=== PATIENT | female | born 1980 | race Caucasian/White ===

== ENCOUNTER 2019-06-08 09:28 | Emergency (ER) | payer OTHER, SELFPAY ==
[2019-06-08 09:34] VITALS: BP 142/82; PULSE 85; RESP 16; TEMP 36.3; O2SAT 100
--- NOTE | 2019-06-08 10:00 | ED.URI ---
HPI - URI/Sore Throat General Chief Complaint: Upper Respiratory Infection Stated Complaint: COUGH Time Seen by Provider: 06/08/19 10:01 Source: patient and RN notes reviewed Mode of arrival: ambulatory Limitations: no limitations History of Present Illness HPI Narrative: 38-year-old female presents with 4-day history of cough, chest congestion. Feels like she has things cough that she is unable to. Reports rhinorrhea, nasal congestion. Reports she has been taking Nasonex with no relief. MD elicited complaint: cough Related Data Home Medications Medication Instructions Recorded Confirmed bupropion HCl 300 mg 24 hr tablet, 300 mg PO DAILY tablet 04/07/19 04/19/19 extended release dextroamphetamine-amphetamine 20 20 mg PO DAILY 04/07/19 04/19/19 mg tablet alprazolam 0.25 mg PO DAILY PRN 04/19/19 04/19/19 biotin 10,000 mcg PO DAILY 04/19/19 04/19/19 esomeprazole magnesium [Nexium] 20 mg PO BID 04/19/19 04/19/19 fluoxetine 40 mg capsule 20 mg PO DAILY cap 05/31/19 levonorgestrel 20 mcg/24 hours (5 1 device I-UTERINE ONCE 05/31/19 yrs) 52 mg intrauterine device topiramate 100 mg tablet 50 mg PO DAILY tablet 05/31/19 Allergies Allergy/AdvReac Type Severity Reaction Status Date / Time No Known Allergies Allergy Unverified 04/19/19 08:49 Review of Systems Review of Systems: Narrative: CONSTITUTIONAL: Reports malaise. Denies chills, sweats, or fever. EYES: Denies visual changes, redness, or discharge. ENT: Reports rhinorrhea, congestion. Denies sinus pain, otalgia and sore throat. CARDIOVASCULAR: Denies chest pain, palpitations, or edema. RESPIRATORY: Reports cough, chest congestion. Denies dyspnea. GASTROINTESTINAL: Denies abdominal pain, nausea, vomiting, diarrhea SKIN: Denies rash or itching. MUSCULOSKELETAL: Denies myalgia. NEUROLOGIC: Reports headache. All systems reviewed & are unremarkable except as noted in HPI and below PMFSH Past Medical History Medical History (Updated 06/08/19 @ 10:08 by Joana Williamson NP) Birthmark of skin removed Chicken pox Craniofacial hyperhidrosis Depression with anxiety Eating disorder Epigastric pain Hip pain Sinus infection Surgical History Surgical History H/O section 2006, 2009 H/O sinus surgery 07/10/2017 Family History Family History (Updated 05/31/19 @ 10:22 by Tahmina Bledsoe [facility]) Sibling Family history of migraine headaches Anxiety Father Family history of migraine headaches Brain tumor Mother Depression Diabetes mellitus Anxiety depression Social History Social History (Updated 05/31/19 @ 10:22 by Tahmina Bledsoe [facility]) Smoking packs per day: 0.5 Smoking cigarettes per day: 10.0 Smoking status: Current every day smoker Tobacco type: cigarettes Alcohol intake: current Comments At time of signature, agree with nursing past medical, surgical, social and family history. There is no relevant family history pertinent to the presenting complaint Exam Narrative: Exam Narrative: GENERAL: Well-appearing, well-nourished, and in no acute distress. HEAD: Normocephalic EYES: PERRLA, conjunctivae clear ENT: Nares clear, turbinates edematous and erythematous, clear discharge. Mucous membranes moist. TM pearly soto with sharp light reflex bilaterally; no tragal tenderness. Oropharynx not erythematous without lesions. Tonsils not enlarged and without exudate, no drooling, no hoarseness, no trismus. NECK: Supple. No lymphadenopathy CHEST: Clear to auscultation, breath sounds equal. No wheezing, rhonchi, rales, or stridor. No respiratory distress, speaks in full sentences. Cough noted HEART: Regular rate and rhythm. No murmur heard. Normal peripheral pulses. SKIN: Warm, dry, no rash. NEURO: Alert and oriented x3. PSYCH: Normal mood and affect Course Course Emergency Course: Patient is aware of diagnosis, understands and agrees to treatment plan. A
== END 2019-06-08 10:13 | disposition home or self-care (01) ==
PROVIDERS: Emergency Provider Nurse Practitioner; PCP Internal Medicine
DX: J40 Bronchitis, not specified as acute or chronic (principal); F17.210 Nicotine dependence, cigarettes, uncomplicated; F41.9 Anxiety disorder, unspecified; F32.9 Major depressive disorder, single episode, unspecified
CPT/HCPCS: 99213; G0463

== ENCOUNTER 2020-07-18 11:52 | Outpatient (CLI) | payer OTHER, SELFPAY ==
--- NOTE | ~2020-07-18 | XR_ITS ---
EXAMINATION: XR ribs BI 3V w CXR 2V DATE: 07/18/2020 12:16 INDICATION: Pleurodynia. TECHNIQUE: Frontal and lateral views of the chest and 3 views of the right ribs and 3 views of the le ft ribs were obtained. COMPARISON: Chest 2 views 10/24/2009 FINDINGS: CHEST TWO VIEWS: The chest demonstrates clear lungs without pneumonia, pleural effusion, or pneumotho rax. The heart size is normal. BILATERAL RIBS: There is no rib fracture. IMPRESSION: 1. No rib fracture. Reviewed, dictated and finalized at location A. IMPRESSION: 1. No rib fracture.
== END 2020-07-18 11:53 | disposition home or self-care (01) ==
LOC: ANHIMG 11:57
PROVIDERS: PCP Internal Medicine; Visit Provider Nurse Practitioner
DX: R07.81 Pleurodynia (principal)
CPT/HCPCS: 71046; 71110

== ENCOUNTER 2020-07-23 08:55 | Outpatient (CLI) | payer OTHER, SELFPAY ==
--- NOTE | ~2020-07-23 | CT_ITS ---
EXAMINATION: CT diagnostic chest w con EXAM DATE: 07/23/2020 09:19 INDICATION: R07.81 - Pleurodynia . TECHNIQUE: Spiral CT of the chest following intravenous injection of 75 mL Omnipaque 350. Axial, cor onal and sagittal images were reviewed. Coronal maximum intensity pixel images of chest reviewed. T he dose-length product (DLP) for this examination was 371.51 mGy-cm. The exposure was tailored accor ding to patient size (auto mA exposure control), and iterative reconstruction (ASIR) was used as lisa tional dose reduction technique. There is no prior study for comparison. FINDINGS: The lungs are clear. There are no pleural or pericardial effusions. Tracheobronchial t ree is patent. There is no mediastinal, hilar or axillary lymphadenopathy. There is no pneumothor ax. Heart normal in size. Gallbladder is mildly distended without calcified cholelithiasis. There is diffuse hazy fat stranding surrounding the gallbladder. Could be chronic cholecystitis given that no acute abdominal symptoms h ave been reported. Consider HIDA scan. There is mild thoracic spondylosis without osteoblastic or ost eolytic lesions identified. IMPRESSION: 1. Pericholecystic inflammation, without gallbladder distention or cholelithiasis. Could be cholecys titis, chronic assuming patient is asymptomatic but please clinically correlate and consider HIDA . 2. No acute cardiopulmonary findings. I left a message for Dr. Bettie Rico NP on 07/23/2020 10:19 CDT. I provided my direct number, stat ed the abnormal gallbladder findings, alerting them to this report. Reviewed, dictated and finalized at location A. IMPRESSION: 1. Pericholecystic inflammation, without gallbladder distention or cholelithia sis. Could be cholecystitis, chronic assuming patient is asymptomatic but pleas e clinically correlate and consider HIDA . 2. No acute cardiopulmonary findings. I left a message for Dr. Bettie Rico NP on 07/23/2020 10:19 CDT. I provided my direct number, stated the abnormal gallbladder findings, alerting them to th is report.
== END 2020-07-23 08:56 | disposition home or self-care (01) ==
PROVIDERS: PCP Internal Medicine; Visit Provider Nurse Practitioner
DX: R07.81 Pleurodynia (principal)
CPT/HCPCS: 71260; Q9967

== ENCOUNTER 2020-08-14 11:55 | Outpatient (CLI) | payer OTHER, SELFPAY ==
--- NOTE | ~2020-08-14 | NM_ITS ---
EXAMINATION: NM hepatobiliary wo pharm DATE: 08/14/2020 14:57 INDICATION: Cholecystitis, unspecified. COMPARISON: Chest CT 07/23/2020 TECHNIQUE: 4.8 mCi Tc-99m mebrofenin (Choletec) was administered intravenously. Scintigraphic images of the abdomen were obtained for one hour. Then, the patient drank 8 oz Ensure, and imaging was cont inued for 60 minutes. FINDINGS: There is normal clearance of radiotracer from the blood pool. There is homogeneous tracer u ptake by the liver. Activity progresses to the bowel and gallbladder. Gallbladder ejection fraction (GBEF) was 75%. Note that with this technique, normal GBEF >= 33%. IMPRESSION: 1. Normal hepatobiliary scintigraphy. Reviewed, dictated and finalized at location A.
== END 2020-08-14 11:56 | disposition home or self-care (01) ==
PROVIDERS: PCP Internal Medicine; Visit Provider Internal Medicine
DX: K81.9 Cholecystitis, unspecified (principal)
CPT/HCPCS: 78226; A9537

== ENCOUNTER → 2020-08-22 09:42 | Outpatient (CLI) | payer OTHER, SELFPAY ==
--- NOTE | ~2020-08-22 | XR_ITS ---
EXAMINATION: XR thoracic spine 3V EXAM DATE: 08/22/2020 10:21 INDICATION: Thoracic radiculopathy . Mid thoracic pain, posterior mid rib pain. TECHNIQUE: Frontal and lateral projections of the thoracic spine as well as lateral swimmers projecti on of the upper thoracic spine for interpretation. There is no prior study for comparison. FINDINGS: Mild mid thoracic dextroscoliosis. Mild mid and lower thoracic disc disease. The vertebral body and disc heights are otherwise well maintained. Posterior aspects of the ribs are unremarkable. No endplate erosive change. Paraspinal soft tissue is unremarkable. IMPRESSION: 1. Mild thoracic dextroscoliosis and disc disease. Reviewed, dictated and finalized at location B.
== END ==
PROVIDERS: Visit Provider Nurse Practitioner Adult Health
DX: M54.14 Radiculopathy, thoracic region (principal); M51.34 Other intervertebral disc degeneration, thoracic region
CPT/HCPCS: 72072

== ENCOUNTER → 2020-09-03 09:48 | Outpatient (CLI) | payer OTHER, SELFPAY ==
--- NOTE | ~2020-09-03 | MR_ITS ---
EXAMINATION: MR thoracic spine wo con EXAM DATE: 09/03/2020 10:34 INDICATION: Thoracic radiculopathy. Mid back pain. TECHNIQUE: Multi-sequential, multiplanar MR images of the thoracic spine were obtained without contra st. Sagittal T1, T2, T2 fat saturation, axial T2 weighted images reviewed. There is no prior study for comparison. FINDINGS: The spinal cord signal intensity and intrinsic morphology is normal. There is mild upper th oracic dextroscoliosis, lower thoracic levoscoliosis. Small Schmorl's nodes at the lower thoracic lev els, mild disc disease. Mild mid and lower thoracic facet arthropathy. Paraspinal soft tissue is unre markable. Thoracic discs are confined to their endplate margins. The central canal and neural foramen are widely patent. IMPRESSION: 1. Mild thoracic scoliosis and spondylosis. 2. No stenosis. Reviewed, dictated and finalized at location A.
== END ==
PROVIDERS: Visit Provider Nurse Practitioner Adult Health
DX: M54.14 Radiculopathy, thoracic region (principal); M41.84 Other forms of scoliosis, thoracic region; M47.814 Spondylosis without myelopathy or radiculopathy, thoracic region
CPT/HCPCS: 72146

== ENCOUNTER 2021-06-15 08:12 | Outpatient (CLI) | payer OTHER, SELFPAY ==
--- NOTE | ~2021-06-15 | XR_ITS ---
EXAMINATION: XR chest 2V EXAM DATE: 06/15/2021 08:21 INDICATION: Cough X3 Wks, Pain Under Sternum. TECHNIQUE: Frontal and lateral projections of the chest obtained and reviewed. Comparison is made to prior examination from 07/18/2020. FINDINGS: The lungs are clear. There are no pleural effusions. The cardiomediastinal silhouette is within normal limits. There is no pneumothorax suspected. The bones and soft tissues are unremarkab le. IMPRESSION: Unremarkable chest x-ray exam. Reviewed, dictated and finalized at location A. LITIES PLANNER
== END 2021-06-15 08:13 | disposition home or self-care (01) ==
LOC: ANHIMG 08:13
PROVIDERS: PCP Internal Medicine; Visit Provider Nurse Practitioner
DX: R05.9 Cough, unspecified (principal); R07.89 Other chest pain
CPT/HCPCS: 71046

== ENCOUNTER → 2022-04-01 10:31 | Outpatient (CLI) | payer OTHER, SELFPAY ==
--- NOTE | ~2022-04-01 | MM_ITS ---
EXAMINATION: MM screening angy BI w kerwin HISTORY: Screening TECHNIQUE: Craniocaudal and mediolateral oblique 3-D tomosynthesis images were obtained and synthetic 2-D images were generated. CAD analysis was submitted and interpreted. COMPARISON: No prior mammogram is available for comparison at this institution. BREAST PARENCHYMAL COMPOSITION: There are scattered areas of fibroglandular density. FINDINGS: There are bilateral periareolar asymmetries. No discrete mass or suspicious calcifications. No skin thickening. IMPRESSION: 1. Bilateral breast asymmetries in the periareolar locations. Recommend comparison to previous outsid e mammograms. 2. Additional spot compression and mediolateral views with possible follow-up breast ultrasound recom mended. BI-RADS Category 0: Incomplete: Needs additional imaging evaluation. Reviewed, dictated and finalized at location B. [employer] IMPRESSION: 1. Bilateral breast asymmetries in the periareolar locations. Recommend compari son to previous outside mammograms. 2. Additional spot compression and mediolateral views with possible follow-up b reast ultrasound recommended. BI-RADS Category 0: Incomplete: Needs additional imaging evaluation.
== END ==
PROVIDERS: PCP Internal Medicine; Visit Provider Obstetrics & Gynecology
DX: Z12.31 Encounter for screening mammogram for malignant neoplasm of breast (principal); R92.8 Other abnormal and inconclusive findings on diagnostic imaging of breast
CPT/HCPCS: 77063; 77067

== ENCOUNTER 2022-10-29 07:21 | Outpatient (RCR) | payer OTHER, SELFPAY | END 2022-12-24 07:39 | disposition home or self-care (01) | LOC: ANHWOC 07:21 | PROVIDERS: PCP Internal Medicine; Visit Provider Clinical Nurse Specialist | DX: T81.49XD Infection following a procedure, other surgical site, subsequent encounter (principal) | CPT/HCPCS: 99212; 99213; G0463 ==

== ENCOUNTER 2023-08-29 17:12 | Emergency (ER) | payer OTHER, SELFPAY ==
--- NOTE | ~2023-08-29 | XR_ITS ---
EXAM: XR ankle RT min 3V, XR foot RT min 3V DATE: Transverse fracture of the base of fifth metatarsal, 1.2 cm from the proximal tuberosity, repor t just proximal to the intermetatarsal joint, without significant displacement . No lytic or blastic lesion. Moderate hallux valgus and mild degenerative change at the first MTP joint. Small plantar ent hesophyte. No erosion or periosteal change. Soft tissues within normal limits. IMPRESSION: Fifth metatarsal avulsion fracture. Reviewed, dictated and finalized at location K. IMPRESSION: Fifth metatarsal avulsion fracture.
[2023-08-29 17:22] VITALS: BP 125/82; PULSE 85; RESP 16; TEMP 36.6; O2SAT 99
--- NOTE | 2023-08-29 17:34 | ED.LOWEXIN ---
HPI - Extremity Injury (Lower) General Chief Complaint: Extremity Injury, Lower Stated Complaint: INJURED R FOOT/ANKLE Source: patient Mode of arrival: ambulatory Limitations: no limitations History of Present Illness HPI Narrative: 43-year-old female presented for complaint of right foot pain and swelling after injury about an hour prior to arrival. She states she slipped off a sidewalk while wearing wedge sandals, the foot and ankle rolled. Cannot tolerate full weight bearing. Denies deformity. Denies other injury. No treatment prior to arrival. Related Data Home Medications Medication Instructions Recorded Confirmed bupropion HCl 300 mg 24 hr tablet, 300 mg PO DAILY 04/07/19 08/29/23 extended release biotin 10,000 mcg capsule 10,000 mcg PO DAILY 04/19/19 08/29/23 levonorgestrel 21 mcg/24 hr (up to 1 device intrauterine ONCE 05/31/19 08/29/23 8 years) 52 mg intrauterine device (Mirena) fluoxetine 40 mg capsule 40 mg PO BID 10/18/19 08/29/23 topiramate 100 mg tablet 100 mg PO BID 10/18/19 08/29/23 dextroamphetamine-amphetamine 20 15 mg PO BID 07/18/20 08/29/23 mg tablet (Adderall) lamotrigine 100 mg tablet 100 mg PO DAILY 05/24/21 08/29/23 cetirizine 10 mg tablet (Zyrtec) 10 mg PO DAILY 03/30/23 08/29/23 Allergies Allergy/AdvReac Type Severity Reaction Status Date / Time No Known Allergies Allergy Verified 08/29/23 17:15 Review of Systems Review of Systems: CONSTITUTIONAL: Denies body aches, fever, chills CARDIOVASCULAR: Denies chest pain, palpitations, or edema. RESPIRATORY: Denies cough or dyspnea. SKIN: Denies rash, itching, or wounds. MUSCULOSKELETAL: Reports right foot pain NEUROLOGIC: Denies headache, numbness, tingling, or weakness. All systems reviewed & are unremarkable except as noted in HPI and below PMFSH Past Medical History Medical History Anxiety Asymmetrical breasts Birthmark of skin removed Breast cyst right breast Chicken pox Chronic sinusitis Cough Craniofacial hyperhidrosis Depression with anxiety Eating disorder Elevated blood pressure reading Encounter for IUD insertion 12/18/09 Mirena insertion 05/22/15 Mirena removal/reinsertion 05/25/20 Mirena removal/reinsertion Encounter for IUD removal 05/22/15 Mirena removal/reinsertion 05/25/20 Mirena removal/reinsertion Epigastric pain Frequent urinary tract infections Hip pain History of back problems patient to start steroid injections Hypertension Localized swelling, mass and lump, unspecified Screening mammogram, encounter for Sinus infection Sore throat Surgical wound infection Surgical History Surgical History H/O section 10/16/06 primary c/s--placental abruption 10/17/09 rpt c/s H/O cystoscopy 04/2020 H/O removal of cyst (11/14/21) cyst removed from back of Benign H/O sinus surgery 07/10/2017 History of endoscopy (04/22/19) [facility]retts History of gynecologic surgery (11/08/09) evacuation of uterus due to bleeding and blood in cavity--decidual fragments Family History Family History Sibling Family history of migraine headaches Anxiety Father Family history of migraine headaches Brain tumor Hypertension Diabetes mellitus Malignant neoplasm of brain Mother Depression Diabetes mellitus Anxiety depression Sarcoidosis Social History Social History Social History: Caffeine-daily Smoking packs per day: 0.5 Smoking cigarettes per day: 10.0 Smoking status: Current every day smoker Tobacco type: cigarettes Second hand tobacco smoke exposure: No Alcohol intake: former Alcohol use details: rarely socially Substance use: never Substance use type: does not use Lack of Transportation: No Lack of Food: Never Tr
--- NOTE | 2023-08-29 18:28 | PC.NURSE ---
1814 - ENCODING CLERK in talking with pt and spouse, and then spouse left to go home and grab her a pair of shorts to wear since we have to place a splint on lower leg, ankle foot.
== END 2023-08-29 19:20 | disposition home or self-care (01) ==
PROVIDERS: Emergency Provider Nurse Practitioner Family; PCP Internal Medicine
DX: S92.354A Nondisplaced fracture of fifth metatarsal bone, right foot, initial encounter for closed fracture (principal); T14.90XA Injury, unspecified, initial encounter; F41.8 Other specified anxiety disorders; I10 Essential (primary) hypertension; F17.210 Nicotine dependence, cigarettes, uncomplicated
CPT/HCPCS: 29515; 73610; 73630; 99214; G0463

== ENCOUNTER 2023-10-06 11:19 | Outpatient (CLI) | payer OTHER, SELFPAY ==
--- NOTE | ~2023-10-06 | XR_ITS ---
EXAM: XR foot RT min 3V DATE: 10/06/2023 11:38 HISTORY: S92.354A - Nondisplaced fracture of fifth metatarsal bone... . COMPARISON: 08/29/2023. FINDINGS: Normal mineralization. Redemonstration of the fifth metatarsal base avulsion fracture, wit h slightly decreased distraction, now measuring 2 mm (previously 3 mm). Some infilling may be present along the fracture line. No definite callus formation. No new acute fracture or dislocation. No lyti c or blastic lesion. Moderate hallux valgus. Mild degenerative change at the first MTP joint. Spaces are maintained. No erosion or periosteal change. Soft tissues within normal limits. IMPRESSION: Right fifth metatarsal base avulsion fracture with possible early healing change. Reviewed, dictated and finalized at location K. IMPRESSION: Right fifth metatarsal base avulsion fracture with possible early h ealing change.
== END 2023-10-06 11:20 | disposition home or self-care (01) ==
PROVIDERS: PCP Internal Medicine; Visit Provider Orthopaedic Surgery
DX: S92.354D Nondisplaced fracture of fifth metatarsal bone, right foot, subsequent encounter for fracture with routine healing (principal); X58.XXXD Exposure to other specified factors, subsequent encounter
CPT/HCPCS: 73630

== ENCOUNTER 2024-02-16 18:42 | Emergency (ER) | payer OTHER, SELFPAY ==
[2024-02-16 18:55] VITALS: BP 136/95; PULSE 81; RESP 16; TEMP 36.4; O2SAT 100
--- NOTE | 2024-02-16 18:56 | ED.URI ---
HPI - URI/Sore Throat General Chief Complaint: Upper Respiratory Infection Stated Complaint: sorethroat Time Seen by Provider: 02/16/24 18:59 History of Present Illness HPI Narrative: 43-year-old female presented for complaint of sore throat, sinus headache, and fatigue. Onset 2 weeks. She reports a history of sinus infections. States ibuprofen does not help the sinus pain. Uses Zyrtec and Flonase daily. Follows with ENT. Denies shortness of breath, wheezing, nausea, vomiting, fevers or chills. Related Data Home Medications Medication Instructions Recorded Confirmed bupropion HCl 300 mg 24 hr tablet, 300 mg PO DAILY 04/07/19 12/08/23 extended release biotin 10,000 mcg capsule 10,000 mcg PO DAILY 04/19/19 12/08/23 levonorgestrel 21 mcg/24 hr (up to 1 device intrauterine ONCE 05/31/19 12/08/23 8 years) 52 mg intrauterine device (Mirena) fluoxetine 40 mg capsule 40 mg PO BID 10/18/19 12/08/23 topiramate 100 mg tablet 100 mg PO BID 10/18/19 12/08/23 dextroamphetamine-amphetamine 20 15 mg PO BID 07/18/20 12/08/23 mg tablet (Adderall) lamotrigine 100 mg tablet 100 mg PO DAILY 05/24/21 12/08/23 cetirizine 10 mg tablet (Zyrtec) 10 mg PO DAILY 03/30/23 12/08/23 alprazolam 0.5 mg tablet 0.5 mg PO DAILY PRN 12/08/23 12/08/23 Allergies Allergy/AdvReac Type Severity Reaction Status Date / Time No Known Allergies Allergy Verified 02/16/24 18:54 Review of Systems Review of Systems: CONSTITUTIONAL: Denies body aches, fever, chills, or sweats. EYES: Denies visual changes, redness, or discharge. ENT: Reports sore throat, sinus pain Denies rhinorrhea, congestion, or otalgia. CARDIOVASCULAR: Denies chest pain, palpitations, or edema. RESPIRATORY: Denies dyspnea. GASTROINTESTINAL: Denies abdominal pain, nausea, vomiting, or diarrhea. SKIN: Denies rash MUSCULOSKELETAL: Denies back pain, joint pain, or myalgia. NEUROLOGIC: Denies headache PMFSH Past Medical History Medical History Anxiety Asymmetrical breasts Birthmark of skin removed Breast cyst right breast Chicken pox Chronic sinusitis Cough Craniofacial hyperhidrosis Depression with anxiety Eating disorder Elevated blood pressure reading Encounter for IUD insertion 12/18/09 Mirena insertion 05/22/15 Mirena removal/reinsertion 05/25/20 Mirena removal/reinsertion Encounter for IUD removal 05/22/15 Mirena removal/reinsertion 05/25/20 Mirena removal/reinsertion Epigastric pain Frequent urinary tract infections Hip pain History of back problems patient to start steroid injections Hypertension Localized swelling, mass and lump, unspecified Screening mammogram, encounter for Sinus infection Sore throat Surgical wound infection Surgical History Surgical History H/O section 10/16/06 primary c/s--placental abruption 10/17/09 rpt c/s H/O cystoscopy 04/2020 H/O removal of cyst (11/14/21) cyst removed from back of Benign H/O sinus surgery 07/10/2017 History of endoscopy (04/22/19) [facility] History of gynecologic surgery (11/08/09) evacuation of uterus due to bleeding and blood in cavity--decidual fragments Family History Family History Sibling Family history of migraine headaches Anxiety Father Family history of migraine headaches Brain tumor Hypertension Diabetes mellitus Malignant neoplasm of brain Mother Depression Diabetes mellitus Anxiety depression Sarcoidosis Social History Social History Social History: Caffeine-daily Smoking packs per day: 0.5 Smoking cigarettes per day: 10.0 Smoking status: Current every day smoker Tobacco type: cigarettes Second hand tobacco smoke exposure: No Alcohol intake: former Alcohol use details: rarely socially Substance use: never Substance use type: does not use Lack of Transportation: No Lack of Food: Never True Current Housing: I Have Housing Concerned About Future Housing: No Difficulty Paying Gas/Electric Bills: No Difficulty Paying for Meds: No Currently Unemployed: No Education: Bachelor's Degree Difficulty w/ Childcare or Family Care: No Living arrangements: other Additional living arrangements comments: Occupation/Education: occupation Additional occupation/education comments: Education Gender identity (if verbalized by the patient): Female Sexual Orientation (if Verbalized by the Patient): Straight or Heterosexual Exam Narrative: GENERAL: well-appearing, no acute distress. EYES: conjunctivae clear ENT: Mucous membranes moist. TMs pearly soto with normal light reflex bilaterally; no tragal tenderness. Oropharynx not erythematous without lesions. No drooling, no hoarseness, no trismus, uvula midline. No tripod positioning, hot potato voice, or soft palate swelling. NECK: Supple. No lymphadenopathy CHEST: Clear to auscultation, breath sounds equal. No respiratory distress, speaks in full sentences. HEART: Regular rate and rhythm. No murmur heard. SKIN: Warm, dry, no rash. NEURO: Alert and oriented x3. Course Course Emergency Course: Patient is aware of diagnosis, understands and agrees to treatment plan. Anticipatory guidance given. Patient agrees to follow-up as directed and is aware of reasons to seek care at the emergency department. Portions of this record may have been created with voice recognition software Level of Care: Express Care Visit Vital Signs Vital signs: Vital Signs Temperature 97.5 F L 02/16/24 18:55 Pulse Rate 81 02/16/24 18:55 Respiratory Rate 16 02/16/24 18:55 Blood Pressure 136/95 H 02/16/24 18:55 Pulse Oximetry 100 02/16/24 18:55 Temperature 97.5 F L 02/16/24 18:55 Pulse Rate 81 02/16/24 18:55 Respiratory Rate 16 02/16/24 18:55 Blood Pressure 136/95 H 02/16/24 18:55 Pulse Oximetry 100 02/16/24 18:55 MDM - URI/Sore Throat MDM Narrative Medical decision making narrative: neg strep result reviewed with pt. Advise supportive treatments. Patient is appropriate for outpatient treatment and follow-up with ENT. Differential Diagnosis Differential diagnosis: Likely upper respiratory infection, sinusitis, viral infection and pharyngitis Discharge Plan Discharge Clinical Impression: Sinus headache Patient Disposition: Home, Self-Care Condition: Stable Instructions: Antibiotic Form, Sinusitis (ED) Additional Instructions: Rapid strep swab was negative today You will be notified in a few days if the culture comes back positive for strep, and appropriate antibiotics will be called in at that time. if symptoms are due to a viral illness, it is not treated with antibiotics. Viral symptoms can be present for up to 10-14 days. continue Flonase spray and Zyrtec for sinus congestion Tylenol every 8 hours as needed for pain/fever Soft foods, cool liquids, warm tea. Gargle with warm saltwater twice a day. Chloraseptic spray and throat lozenges. Rest and stay hydrated. --Follow up with your PCP and ENT, call to schedule an appointment --Go to the ER for any worsening symptoms or concerns Prescriptions: No Action Mirena 20 mcg/24 hours (5 yrs) 52 mg intrauterine device 1 device I-UTERINE ONCE Rx Instructions: as a single dose dextroamphetamine-amphetamine [Adderall] 20 mg tablet 15 mg PO BID bupropion HCl 300 mg tablet extended release 24 hr 300 mg PO DAILY topiramate 100 mg tablet 100 mg PO BID fluoxetine 40 mg capsule 40 mg PO BID lamotrigine 100 mg tablet 100 mg PO DAILY cetirizine [Zyrtec] 10 mg tablet 10 mg PO DAILY glycopyrrolate 1 mg tablet See Rx Instructions .ROUTE .COMPLEX Qty: 90 2RF Dose Instruction: TAKE 1 TABLET BY MOUTH EVERY DAY FOR HYPERHIDROSIS Rx Instructions: TAKE 1 TABLET BY MOUTH EVERY DAY FOR HYPERHIDROSIS. alprazolam 0.5 mg tablet 0.5 mg PO DAILY PRN biotin 10,000 mcg Capsule 10,000 mcg PO DAILY esomeprazole magnesium [Nexium] 20 mg capsule,delayed release(DR/EC) 20 mg PO BID Qty: 180 3RF Follow-up/Referrals: Efrain Bradshaw DO [Primary Care Provider] - Time of Disposition: 19:10
[2024-02-16 19:06] LABS: EDSTREPNEGPOS1 Negative (Negative)
== END 2024-02-16 19:10 | disposition home or self-care (01) ==
PROVIDERS: Emergency Provider Nurse Practitioner Family; PCP Internal Medicine
DX: R51.9 Headache, unspecified (principal); F17.210 Nicotine dependence, cigarettes, uncomplicated; I10 Essential (primary) hypertension; F41.9 Anxiety disorder, unspecified; F32.A Depression, unspecified
CPT/HCPCS: 87081; 87880; 99213; G0463

== ENCOUNTER 2024-05-13 11:25 | Emergency (ER) | payer OTHER, SELFPAY ==
[2024-05-13 11:38] VITALS: BP 134/94; PULSE 89; RESP 16; TEMP 36.3; O2SAT 100
--- NOTE | 2024-05-13 11:41 | PC.NURSE ---
patient declined being weighed. she has an eating disorder
--- NOTE | 2024-05-13 13:01 | ED_ITS ---
HPI - Female Genitourinary General Chief complaint: Urogenital-Female Stated complaint: UTI Symptoms Time Seen by Provider: 05/13/24 12:52 Source: patient and RN notes reviewed Mode of arrival: ambulatory Limitations: no limitations History of Present Illness HPI Narrative: Patient presents today complaining of dysuria, cloudy urine, urinary frequency. She was placed on Macrobid for UTI symptoms 4 days ago by her PCP for 3 day course. States symptoms have not improved with this antibiotic. Prior to taking the antibiotic, patient was diagnosed with COVID-19. She called her PCPs office and told them that the Macrobid did not improve her symptoms. Because she still tested positive for COVID at this time, she was told to come to [facility] for re-evaluation and a different antibiotic. Patient denies ab dominal pain, back pain, hematuria. Patient was on Augmentin for 10 day course for sinusitis on 04/22/2024 as well. Related Data Home Medications ?Medication ?Instructions ?Recorded ?Confirmed ?Last Taken ?Type bupropion HCl 300 mg 24 hr tablet, 300 mg PO DAILY 04/07/19 04/22/24 04/22/19 History extended release biotin 10,000 mcg capsule 10,000 mcg PO DAILY 04/19/19 04/22/24 04/22/19 History levonorgestrel (Mirena) 1 device intrauterine ONCE 05/31/19 04/22/24 Unknown History fluoxetine 40 mg capsule 40 mg PO BID 10/18/19 04/22/24 Unknown History topiramate 100 mg tablet 100 mg PO BID 10/18/19 04/22/24 Unknown History dextroamphetamine-amphetamine 20 15 mg PO BID 07/18/20 04/22/24 Unknown History mg tablet (Adderall) cetirizine 10 mg tablet (Zyrtec) 10 mg PO DAILY 03/30/23 04/22/24 Unknown History alprazolam 0.5 mg tablet 0.5 mg PO DAILY PRN 12/08/23 04/22/24 Unknown History lactobacillus combination no.4 3 3,000 mmu cells PO DAILY 04/22/24 04/22/24 Unknown History billion cell capsule (Probiotic) lamotrigine 100 mg tablet 200 mg PO DAILY 04/22/24 04/22/24 Unknown History Allergies Allergy/AdvReac Type Severity Reaction Status Date / Time No Known Allergies Allergy Verified 05/13/24 11:42 Review of Systems Review of Systems: CONSTITUTIONAL: Denies body aches, fever, chills, or sweats. EYES: Denies visual changes, redness, or discharge. ENT: Denies rhinorrhea, congestion, sore throat, or otalgia. CARDIOVASCULAR: Denies chest pain, palpitations, or edema. RESPIRATORY: Denies cough or dyspnea. GASTROINTESTINAL: Denies abdominal pain, nausea, vomiting, or diarrhea. GENITOURINARY: + dysuria, frequency, cloudy urine. SKIN: Denies rash, itching, or wounds. MUSCULOSKELETAL: Denies back pain, joint pain, or myalgia. NEUROLOGIC: Denies headache, numbness, tingling, or weakness. PSYCH: Denies depression or anxiety. [facility] Past Medical History Medical History Chronic sinusitis Surgical wound infection Asymmetrical breasts Screening mammogram, encounter for Encounter for IUD removal 05/22/15 Mirena removal/reinsertion 05/25/20 Mirena removal/reinsertion Encounter for IUD insertion 12/18/09 Mirena insertion 05/22/15 Mirena removal/reinsertion 05/25/20 Mirena removal/reinsertion Anxiety Breast cyst right breast Hypertension History of back problems patient to start steroid injections Frequent urinary tract infections Localized swelling, mass and lump, unspecified Sore throat Cough Elevated blood pressure reading Birthmark of skin removed Eating disorder Depression with anxiety Sinus infection Chicken pox Craniofacial hyperhidrosis Hip pain Epigastric pain Surgical History Surgical History H/O removal of cyst (11/14/21) cyst removed from back of Benign History of endoscopy (04/22/19) [facility] History of gynecologic surgery (11/08/09) evacuation of uterus due to bleeding and blood in cavity--decidual fragments H/O cystoscopy 04/2020 H/O sinus surgery 07/10/2017 H/O section 10/16/06 primary c/s--placental abruption 10/17/09 rpt c/s Family History Family History Sibling Family history of migraine headaches Anxiety Father Family history of migraine headaches Brain tumor Hypertension Diabetes mellitus Malignant neoplasm of brain Mother Depression Diabetes mellitus Anxiety depression Sarcoidosis Social History Social History Social History: Caffeine-daily Smoking packs per day: 0.5 Smoking cigarettes per day: 10.0 Smoking status: Current every day smoker Tobacco type: cigarettes Second hand tobacco smoke exposure: No Alcohol intake: former Alcohol use details: rarely socially Substance use: never Substance use type: does not use Do You Feel Safe in your Home?: Yes Lack of Transportation: No Lack of Food: Never True Current Housing: I Have Housing Concerned About Future Housing: No Difficulty Paying Gas/Electric Bills: No Difficulty Paying for Meds: No Currently Unemployed: No Education: Bachelor's Degree Difficulty w/ Childcare or Family Care: No Living arrangements: with family Additional living arrangements comments: Occupation/Education: occupation Additional occupation/education comments: Education Gender identity (if verbalized by the patient): Female Sexual Orientation (if Verbalized by the Patient): Straight or Heterosexual Comments At time of signature, I have reviewed and agree with nursing past medical, surgical, social and family history unless otherwise noted. Please see nursing chart for further information. There is no relevant family history pertinent to the presenting complaint Exam Narrative: GENERAL: Well-appearing, well-nourished, and in no acute distress. HEAD: Normocephalic, atraumatic. EYES: EOMI. No redness or drainage. Conjunctivae normal. ENT: Mucous membranes pink and moist. NECK: Normal AROM. CHEST: No respiratory distress. EXTREMITIES: Normal range of motion. No edema. SKIN: Warm, dry, no rash. Capillary refill normal. Normal skin turgor. NEURO: No focal deficits. Alert and oriented x3. Gait steady. PSYCH: Normal affect. No signs of depression or anxiety. Course Course Level of Care: Express Care Visit Vital Signs Vital signs: Vital Signs Temperature 97.4 F L 05/13/24 11:38 Pulse Rate 89 05/13/24 11:38 Respiratory Rate 16 05/13/24 11:38 Blood Pressure 134/94 H 05/13/24 11:38 Pulse Oximetry 100 05/13/24 11:38 Temperature 97.4 F L 05/13/24 11:38 Pulse Rate 89 05/13/24 11:38 Respiratory Rate 16 05/13/24 11:38 Blood Pressure 134/94 H 05/13/24 11:38 Pulse Oximetry 100 05/13/24 11:38 Reviewed. Patient declined to be weighed due to eating disorder. MDM - Female Genitourinary MDM Narrative Medical decision making narrative: Urinalysis was not completed as patient has been on Macrobid so recently. Urine culture pending. Patient will be started on a course of Keflex. Anticipatory guidance given. Differential Diagnosis Differential diagnosis: Likely urinary tract infection, vaginitis and cystitis Critical Care Time Critical Care Time Critical Care Time: No Discharge Plan Discharge Clinical Impression: Symptoms of urinary tract infection Patient Disposition: Home, Self-Care Condition: Stable Instructions: Antibiotic Form, Urinary Tract Infection in Women (ED) Additional Instructions: Please take the Keflex as prescribed until gone. Your urine has been sent for culture and you will be notified by telephone if your urine needs to be changed based on these results in a few days. Go to the ER immediately if symptoms worsen to include severe abdominal pain, back pain, fever, nausea or vomiting. Your blood pressure was elevated above 120/80 today at Urgent Care. This puts you above the threshold for follow up. Please schedule a followup visit with your personal physician as soon as possible, for further evaluation and treatment. Even blood pressure exceeding 120/80 may indicate pre-hypertension. Patient Language: Divehi Prescriptions: New cephalexin 500 mg capsule 500 mg PO Q6H 7 Days Qty: 28 0RF No Action Mirena 20 mcg/24 hours (5 yrs) 52 mg intrauterine device 1 device I-UTERINE ONCE Rx Instructions: as a single dose dextroamphetamine-amphetamine [Adderall] 20 mg tablet 15 mg PO BID lamotrigine 100 mg tablet 200 mg PO DAILY Probiotic 3 billion cell capsule 3,000 mmu cells PO DAILY Rx Instructions: administer with a meal bupropion HCl 300 mg tablet extended release 24 hr 300 mg PO DAILY topiramate 100 mg tablet 100 mg PO BID fluoxetine 40 mg capsule 40 mg PO BID cetirizine [Zyrtec] 10 mg tablet 10 mg PO DAILY alprazolam 0.5 mg tablet 0.5 mg PO DAILY PRN biotin 10,000 mcg Capsule 10,000 mcg PO DAILY esomeprazole magnesium [Nexium] 20 mg capsule,delayed release(DR/EC) 20 mg PO BID Qty: 180 3RF glycopyrrolate 1 mg tablet See Rx Instructions .ROUTE .COMPLEX Qty: 90 1RF Dose Instruction: TAKE 1 TABLET BY MOUTH EVERY DAY FOR HYPERHIDROSIS Rx Instructions: TAKE 1 TABLET BY MOUTH EVERY DAY FOR HYPERHIDROSIS. Follow-up/Referrals: Efrain Bradshaw DO [Primary Care Provider] - Time of Disposition: 12:58
== END 2024-05-13 13:00 | disposition home or self-care (01) ==
PROVIDERS: Emergency Provider Nurse Practitioner; PCP Internal Medicine
DX: R30.0 Dysuria (principal); U07.1 COVID-19; I10 Essential (primary) hypertension; F41.8 Other specified anxiety disorders; F17.210 Nicotine dependence, cigarettes, uncomplicated
CPT/HCPCS: 87086; 87186; 99213; G0463

== ENCOUNTER 2025-04-16 09:27 | Emergency (ER) | payer OTHER, SELFPAY ==
--- NOTE | 2025-04-16 09:44 | ED.URI ---
HPI - URI/Sore Throat General Chief Complaint: Upper Respiratory Infection Stated Complaint: sore throat Time Seen by Provider: 04/16/25 09:55 Source: patient Mode of arrival: ambulatory Limitations: no limitations History of Present Illness HPI Narrative: Sandra is a 44-year-old female patient presenting to the clinic today with complaints of nasal congestion, cough, and sore throat x4 days. She is concerned that she may have strep throat. Denies any fevers, chills, body aches. Denies any chest pain or shortness of breath. States she gets frequent sinus infections. Related Data Home Medications ?Medication ?Instructions ?Recorded ?Confirmed ?Last Taken ?Type bupropion HCl 300 mg 24 hr tablet, 300 mg PO DAILY 04/07/19 04/16/25 04/22/19 History extended release biotin 10,000 mcg capsule 10,000 mcg PO DAILY 04/19/19 04/16/25 04/22/19 History levonorgestrel (Mirena) 1 device intrauterine ONCE 05/31/19 04/16/25 Unknown History fluoxetine 40 mg capsule 40 mg PO BID 10/18/19 04/16/25 Unknown History topiramate 100 mg tablet 100 mg PO BID 10/18/19 04/16/25 Unknown History dextroamphetamine-amphetamine 20 15 mg PO BID 07/18/20 04/16/25 Unknown History mg tablet (Adderall) cetirizine 10 mg tablet (Zyrtec) 10 mg PO DAILY 03/30/23 04/16/25 Unknown History alprazolam 0.5 mg tablet 0.5 mg PO DAILY PRN anxiety 12/08/23 04/16/25 Unknown History lactobacillus combination no.4 3 3,000 mmu cells PO DAILY 04/22/24 04/16/25 Unknown History billion cell capsule (Probiotic) lamotrigine 100 mg tablet 200 mg PO DAILY 04/22/24 04/16/25 Unknown History Allergies Allergy/AdvReac Type Severity Reaction Status Date / Time No Known Allergies Allergy Verified 04/16/25 09:59 Review of Systems Review of Systems: Pertinent positives per HPI. Patient denies any fever, chills, rash, headache, visual changes, dizziness, shortness of breath, chest pain, palpitations, nausea, vomiting, diarrhea, constipation, abdominal pain, or any urinary issues. [facility] Past Medical History Medical History Chronic sinusitis Surgical wound infection Asymmetrical breasts Screening mammogram, encounter for Encounter for IUD removal 05/22/15 Mirena removal/reinsertion 05/25/20 Mirena removal/reinsertion Encounter for IUD insertion 12/18/09 Mirena insertion 05/22/15 Mirena removal/reinsertion 05/25/20 Mirena removal/reinsertion Anxiety Breast cyst right breast Hypertension History of back problems patient to start steroid injections Frequent urinary tract infections Localized swelling, mass and lump, unspecified Sore throat Cough Elevated blood pressure reading Birthmark of skin removed Eating disorder Depression with anxiety Sinus infection Chicken pox Craniofacial hyperhidrosis Hip pain Epigastric pain Surgical History Surgical History H/O removal of cyst (11/14/21) cyst removed from back of Benign History of endoscopy (04/22/19) [facility]ts History of gynecologic surgery (11/08/09) evacuation of uterus due to bleeding and blood in cavity--decidual fragments H/O cystoscopy 04/2020 H/O sinus surgery 07/10/2017 H/O section 10/16/06 primary c/s--placental abruption 10/17/09 rpt c/s Family History Family History Sibling Family history of migraine headaches Anxiety Father Family history of migraine headaches Brain tumor Hypertension Diabetes mellitus Malignant neoplasm of brain Mother Depression Diabetes mellitus Anxiety depression Sarcoidosis Social History Social History Social History: Caffeine-daily Smoking packs per day: 0.5 Smoking cigarettes per day: 10.0 Smoking status: Current every day smoker Tobacco type: cigarettes Second hand tobacco smoke exposure: No Alcohol intake: former Alcohol use details: rarely socially Substance use: never Substance use type: does not use Lack of Transportation: No Lack of Food: Never True Current Housing: I Have Housing Concerned About Future Housing: No Difficulty Paying Gas/Electric Bills: No Difficulty Paying for Meds: No Currently Unemployed: No Education: Bachelor's Degree Difficulty w/ Childcare or Family Care: No Living arrangements: with family Additional living arrangements comments: Occupation/Education: occupation Additional occupation/education comments: Education Gender identity (if verbalized by the patient): Female Sexual Orientation (if Verbalized by the Patient): Straight or Heterosexual Comments At the time of my signature, I reviewed and agree with the nursing past medical, surgical, social, and family history. There is no relevant family history pertinent to the patient complaint. Exam Narrative: General: Well-developed, well nourished, in no apparent distress Head: Normocephalic, atraumatic Eyes: Pupils equally round and reactive to light bilaterally, EOM intact, sclera and conjunctive clear, no discharge, lids normal Ears: TMs intact and clear, ear canals clear, no drainage, grossly hearing normal. Nose: Nares patent, clear nasal discharge, mild inflammation, no sinus tenderness. Mouth: Oral pharynx mildly red without lesions or masses, good dentition, MMM. Neck: Supple, trachea midline, no enlargement of anterior or posterior cervical nodes, no thyroid masses or goiter palpable. Cardio: Regular rate and rhythm, s1 and s2 normal, no murmur appreciated. Resp: Clear to auscultation bilaterally, no rhonchi, rales, wheezing or rubs Course Course Level of Care: Express Care Visit Vital Signs Vital signs: Vital Signs Temperature 36.7 C 04/16/25 09:48 Pulse Rate 89 04/16/25 09:48 Respiratory Rate 18 04/16/25 09:48 Blood Pressure 139/86 04/16/25 09:48 Pulse Oximetry 98 04/16/25 09:48 Oxygen Delivery Room Air 04/16/25 09:48 Temperature 36.7 C 04/16/25 09:48 Pulse Rate 89 04/16/25 09:48 Respiratory Rate 18 04/16/25 09:48 Blood Pressure 139/86 04/16/25 09:48 Pulse Oximetry 98 04/16/25 09:48 Oxygen Delivery Room Air 04/16/25 09:48 MDM MDM Narrative Medical decision making narrative: At the time of visit patient is resting comfortably on the exam table. Patient appears to be nontoxic. Complaints of nasal congestion, cough, and sore throat x4 days. She is concerned that she may have strep throat. Denies any fevers, chills, body aches. Denies any chest pain or shortness of breath. States she gets frequent sinus infections. On exam patient has bilateral TMs intact and clear, clear nasal drainage, no anterior turbinate inflammation, oral pharynx red, no cervical lymphadenopathy, lung sounds are clear, heart rates regular rate and rhythm. Strep, COVID, and influenza testing was ordered per patient's request. Labs: COVID, flu, and strep test were all negative in the clinic today. We will send strep for culture. Plan: I suspect patient has URI/pharyngitis/viral syndrome. Work note was given. Supportive measures were discussed with the patient and they voiced understanding discharge instructions and agrees to treatment plan. Return precautions reviewed Differential Diagnosis Differential Diagnosis: Differential diagnostic considerations for upper respiratory infection include upper respiratory infection, croup, otitis media, sinusitis, viral infection, bronchitis, influenza, pharyngitis, strep, uvulitis. Lab Data Labs: Lab Results 04/16/25 Range/Units 10:11 POC Influenza A Ag Negative (Negative) POC Influenza B Ag Negative (Negative) POC SARS CoV-2 Ag Negative (Negative) POC Grp A Strep Screen Negative (Negative) Discharge Plan Discharge Clinical Impression: Acute viral syndrome URI (upper respiratory infection) Qualifiers: URI type: unspecified URI Qualified Code(s): J06.9 - Acute upper respiratory infection, unspecified Pharyngitis Qualifiers: Pharyngitis/tonsillitis etiology: unspecified etiology Qualified Code(s): J02.9 - Acute pharyngitis, unspecified Patient Disposition: Home Condition: Stable Instructions: Antibiotic Form, Pharyngitis (ED), Viral Syndrome (ED), Cold Symptoms (ED) Additional Instructions: COVID, flu, and strep test were all negative in the clinic today. No sign of bacterial infection and lung sounds are clear in the clinic today. May take DayQuil/NyQuil for cold/flu symptoms. Increase fluids and stay well hydrated May take Tylenol or motrin as directed on bottle for pain/fever May use Flonase 1 spray in each nare daily May take OTC antihistamines such as Zyrtec or Claritin daily as directed on bottle May apply Vicks vapor rub to chest to open sinuses Sinus rinses for congestion Cepacol spray, cough drops, throat lozenges, warm tea with honey/lemon, gargle salt water to soothe throat BRAT diet for diarrhea Clear liquids x 24 hours then advance as tolerated for nausea/vomiting Go to the ED if you develop a worsening in your condition- high fever not controlled by Tylenol or Motrin, dehydration, weakness, lethargy, shortness of breath, or chest pain. Follow up with your PCP in 3-5 days if symptoms persist. Patient Language: Maltese Prescriptions: No Action cephalexin 500 mg capsule 500 mg PO Q6H 7 Days Qty: 28 0RF ciprofloxacin HCl [Cipro] 500 mg tablet 500 mg PO DAILY 3 Days Qty: 3 0RF Mirena 20 mcg/24 hours (5 yrs) 52 mg intrauterine device 1 device I-UTERINE ONCE Rx Instructions: as a single dose dextroamphetamine-amphetamine [Adderall] 20 mg tablet 15 mg PO BID lamotrigine 100 mg tablet 200 mg PO DAILY Probiotic 3 billion cell capsule 3,000 mmu cells PO DAILY Rx Instructions: administer with a meal bupropion HCl 300 mg tablet extended release 24 hr 300 mg PO DAILY topiramate 100 mg tablet 100 mg PO BID fluoxetine 40 mg capsule 40 mg PO BID cetirizine [Zyrtec] 10 mg tablet 10 mg PO DAILY alprazolam 0.5 mg tablet 0.5 mg PO DAILY PRN (Reason: anxiety) biotin 10,000 mcg Capsule 10,000 mcg PO DAILY esomeprazole magnesium [Nexium] 20 mg capsule,delayed release(DR/EC) 20 mg PO BID Qty: 180 3RF glycopyrrolate 1 mg tablet See Rx Instructions .ROUTE .COMPLEX Qty: 90 1RF Dose Instruction: TAKE 1 TABLET BY MOUTH EVERY DAY FOR HYPERHIDROSIS Rx Instructions: TAKE 1 TABLET BY MOUTH EVERY DAY FOR HYPERHIDROSIS. Follow-up/Referrals: Efrain Bradshaw, [Primary Care Provider, Internal Medicine] Stand Alone Forms: Work/School Release IP Time of Disposition: 10:18 Quality NIHSS Nursing Documentation ED NIHSS nursing documentation: reviewed/agree
[2025-04-16 09:48] VITALS: BP 139/86; PULSE 89; RESP 18; TEMP 36.7; O2SAT 98
[2025-04-16 10:13] LABS: EDCOVIDSCREEN Negative (Negative); EDINFLUASCREEN Negative (Negative); EDINFLUBSCREEN Negative (Negative); EDSTREPNEGPOS1 Negative (Negative)
== END 2025-04-16 10:23 | disposition home or self-care (01) ==
PROVIDERS: Emergency Provider Nurse Practitioner Family; PCP Internal Medicine
DX: J02.9 Acute pharyngitis, unspecified (principal); I10 Essential (primary) hypertension; F17.210 Nicotine dependence, cigarettes, uncomplicated; Z20.822 Contact with and (suspected) exposure to COVID-19
CPT/HCPCS: 87081; 87426; 87804; 87880; 99213; G0463